=== PATIENT | female | born 1985 | race Caucasian/White ===

== ENCOUNTER 2016-10-28 08:26 | Emergency (ER) | payer MEDICAID ==
[2016-10-28 08:34] VITALS: BP 121/69
[2016-10-28] MEDS ORDERED: Famotidine 20 MG/2 ML SDV IVPUSH ONE (09:27)
[2016-10-28] MEDS ORDERED: Alum Hydrox/Mag Hydrox/Simeth 30 ML, Lidocaine 2% 15 ML PO ONE ×2 (09:27)
--- NOTE | 2016-10-28 09:29 | EDM.PDOC ---
ED HPI GENERAL MEDICAL PROBLEM - General Chief Complaint: Chest Pain Stated Complaint: CHEST PAIN/BURN Time Seen by Provider: 10/28/16 08:34 Source of Information: Reports: Patient History Limitations: Reports: No Limitations - History of Present Illness INITIAL COMMENTS - FREE TEXT/NARRATIVE: 30 y/o F with CP. Started during the night. Woke her from sleep. Burnign and sharp, central chest, radiates towards the back. Mildly worse with inspiration. No SOB. No cough/fever. Better when sitting forward. Also worse with exertion. No nausea/vomiting. No abd pain. Doesn't feel like heartburn to her. No hx similar symptoms previously. No lower extremity pain/swelling. No recent travel. She does have hx ovarian cancer s/p radical hyst, cancer-free now , on supplemental estrogen. No prior DVT/PE. No recent illness. No recent immobilization. Middle Chest Pain Score (Numeric/FACES): 8 - Related Data Allergies Allergy/AdvReac Type Severity Reaction Status Date / Time No Known Allergies Allergy Verified 10/28/16 08:34 Home Meds: Home Meds Estradiol Acetate [Femring] 0.1 mg VAG ASDIRECTED 10/28/16 [History] Ibuprofen 800 mg PO TID PRN #50 tablet 10/28/16 [Rx] Naproxen 500 mg PO BID 10/28/16 [History] Past Medical History HEENT History: Reports: Impaired Vision Other HEENT History: wears corrective lenses Respiratory History: Reports: Other (See Below) Other Respiratory History: pleurisy, small nodules to lungs Gastrointestinal History: Reports: GERD 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: , 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 Musculoskeletal History: Reports: Other (See Below) Other Musculoskeletal History: dysplatic right hip, sciatic issues Neurological History: Reports: Migraines Psychiatric History: Reports: Anxiety Oncologic (Cancer) History: Reports: Ovarian Other Oncologic History: in remission Dermatologic History: Reports: Other (See Below) Other Dermatologic History: sun allergy - Infectious Disease History Infectious Disease History: Reports: Chicken Pox - Past Surgical History HEENT Surgical History: Reports: Tonsillectomy Respiratory Surgical History: Reports: None GI Surgical History: Reports: Appendectomy, Cholecystectomy Female Surgical History: Reports: Hysterectomy, Oophorectomy Other Female Surgeries/Procedures: radical hysterectomy Oncologic Surgical History: Reports: Other (See Below) Other Oncologic Surgeries/Procedures: radical hysterectomy Social & Family History - Tobacco Use Smoking Status *Q: Never Smoker Second Hand Smoke Exposure: No - Caffeine Use Caffeine Use: Reports: Coffee - Recreational Drug Use Recreational Drug Use: No ED ROS GENERAL - Review of Systems Review Of Systems: See Below Constitutional: Denies: Fever Respiratory: Denies: Shortness of Breath, Cough Cardiovascular: Reports: Chest Pain GI/Abdominal: Denies: Abdominal Pain Musculoskeletal: Denies: Neck Pain Skin: Reports: No Symptoms Neurological: Reports: No Symptoms Psychiatric: Reports: No Symptoms (the patient) ED EXAM, GENERAL - Physical Exam Exam: See Below Exam Limited By: No Limitations General Appearance: Alert, WD/WN, No Apparent Distress Eye Exam: Bilateral Eye: PERRL Ears: Normal External Exam Nose: Normal Inspection Throat/Mouth: Normal Inspection, Normal Oropharynx, Normal Voice, No Airway Compromise Head: Atraumatic, Normocephalic Neck: Normal Inspection, Supple, Non-Tender, Full Range of Motion Respiratory/Chest: No Respiratory Distress, Lungs Clear, Normal Breath Sounds, No Accessory Muscle Use, Chest Non-Tender Cardiovascular: Normal Peripheral Pulses, Regular Rate, Rhythm, No Edema, No Murmur, No Rub GI/Abdominal: Soft, Non-Tender, No Distention. No: Rebound Extremities: Normal Inspection. No: Pedal Edema, Leg Pain, Increased Warmth Neurological: Alert, Oriented, Normal Cognition, No Motor/Sensory Deficits Psychiatric: Normal Affect, Normal Mood Skin Exam: Warm, Dry, Intact, Normal Color, No Rash Course - Vital Signs Last Recorded V/S: Last Vital Signs Temp 36.4 C 10/28/16 08:32 Pulse 85 10/28/16 08:32 Resp 19 10/28/16 08:32 BP 121/69 10/28/16 08:32 Pulse Ox 99 10/28/16 08:32 - Orders/Labs/Meds Orders: Active Orders 24 hr Category Date Time Status EKG 12 Lead [EK] Stat Ther 10/28/16 08:47 Ordered EKG 12 Lead [EK] Stat Ther 10/28/16 09:06 Stop Req Labs: Laboratory Tests 10/28/16 10/28/16 10/28/16 Range/Units 08:55 08:55 08:55 WBC 4.28 (3.98-10.04) K/mm3 RBC 5.24 H (3.98-5.22) M/mm3 Hgb 15.2 (11.2-15.7) gm/L Hct 44.1 (34.1-44.9) % MCV 84.2 (79.4-94.8) fl MCH 29.0 (25.6-32.2) pg MCHC 34.5 (32.2-35.5) g/dl RDW Std Deviation 38.9 (36.4-46.3) fL Plt Count 268 (182-369) K/mm3 MPV 10.3 (9.4-12.3) fl Neut % (Auto) 68.5 (34.0-71.1) % Lymph % (Auto) 22.9 (19.3-51.7) % Pratt % (Auto) 7.9 (4.7-12.5) % Eos % (Auto) 0.5 L (0.7-5.8) Baso % (Auto) 0.2 (0.1-1.2) % Neut # (Auto) 2.93 (1.56-6.13) K/mm3 Lymph # (Auto) 0.98 L (1.18-3.74) K/mm3 Pratt # (Auto) 0.34 (0.24-0.36) K/mm3 Eos # (Auto) 0.02 L (0.04-0.36) K/mm3 Baso # (Auto) 0.01 (0.01-0.08) K/mm3 D-Dimer, Quantitative < 0.19 L (0.19-0.59) mg/L Sodium 140 (136-145) mEq/L Potassium 4.3 (3.5-5.1) mEq/L Chloride 104 (98-107) mEq/L Carbon Dioxide 28 (21-32) mEq/L Anion Gap 12.3 (5-15) BUN 4 L (7-18) mg/dL Creatinine 0.7 (0.55-1.02) mg/dL Est Cr Clr Drug Dosing 90.29 mL/min Estimated GFR (MDRD) > 60 (>60) mL/min BUN/Creatinine Ratio 5.7 L (14-18) Glucose 99 (74-106) mg/dL Calcium 9.5 (8.5-10.1) mg/dL Troponin I < 0.017 (0.00-0.056) ng/mL C-Reactive Protein (<1.0) mg/dL 10/28/16 Range/Units 08:55 WBC (3.98-10.04) K/mm3 RBC (3.98-5.22) M/mm3 Hgb (11.2-15.7) gm/L Hct (34.1-44.9) % MCV (79.4-94.8) fl MCH (25.6-32.2) pg MCHC (32.2-35.5) g/dl RDW Std Deviation (36.4-46.3) fL Plt Count (182-369) K/mm3 MPV (9.4-12.3) fl Neut % (Auto) (34.0-71.1) % Lymph % (Auto) (19.3-51.7) % Pratt % (Auto) (4.7-12.5) % Eos % (Auto) (0.7-5.8) Baso % (Auto) (0.1-1.2) % Neut # (Auto) (1.56-6.13) K/mm3 Lymph # (Auto) (1.18-3.74) K/mm3 Pratt # (Auto) (0.24-0.36) K/mm3 Eos # (Auto) (0.04-0.36) K/mm3 Baso # (Auto) (0.01-0.08) K/mm3 D-Dimer, Quantitative (0.19-0.59) mg/L Sodium (136-145) mEq/L Potassium (3.5-5.1) mEq/L Chloride (98-107) mEq/L Carbon Dioxide (21-32) mEq/L Anion Gap (5-15) BUN (7-18) mg/dL Creatinine (0.55-1.02) mg/dL Est Cr Clr Drug Dosing mL/min Estimated GFR (MDRD) (>60) mL/min BUN/Creatinine Ratio (14-18) Glucose (74-106) mg/dL Calcium (8.5-10.1) mg/dL Troponin I (0.00-0.056) ng/mL C-Reactive Protein 0.6 (<1.0) mg/dL Meds: Medications Discontinued Medications Generic Name Dose Route Start Last Admin Trade Name Freq PRN Reason Stop Dose Admin Al Hydroxide/Mg Hydroxide 30 0 ml 10/28/16 09:27 10/28/16 09:36 ml/ Lidocaine HCl 15 ml PO 10/28/16 09:28 45 ml ONETIME ONE Administration Famotidine 20 mg 10/28/16 09:27 10/28/16 09:37 Pepcid IVPUSH 10/28/16 09:28 20 mg ONETIME ONE Administration Ketorolac Tromethamine 30 mg 10/28/16 11:01 10/28/16 11:06 Toradol IVPUSH 10/28/16 11:02 30 mg ONETIME ONE Administration - Re-Assessments/Exams Free Text/Narrative Re-Assessment/Exam: 10/28/16 11:29 Chest x-ray shows no acute abnormality. Labs including d-dimer and troponin are negative. Her story does sound somewhat suggestive of pericarditis. Her EKG shows normal sinus rhythm. She does have some very subtle MA depression but it is minimal and she does not have any ST elevation. Her CRP is negative. So I don 't think that pericarditis is very likely given minimal EKG changes and negative CRP. However, she did not have any relief with GI meds so we will try high-dose NSAIDs in case it is early pericarditis or pleurisy or a musculoskeletal source. Discussed need for follow-up and return precautions. Departure - Departure Time of Disposition: 11:02 Disposition: Home, Self-Care 01 Clinical Impression: Chest pain Qualifiers: Chest pain type: unspecified Qualified Code(s): R07.9 - Chest pain, unspecified Prescriptions: Ibuprofen 800 mg PO TID PRN #50 tablet PRN Reason: Pain Instructions: Nonspecific Chest Pain, [id number] Referrals: PCP,None [Primary Care Provider] - Forms: ED Department Discharge Additional Instructions: 1. Take ibuprofen three times daily as prescribed for a week. If this is early pericarditis (inflammation around the heart sack) this may be helpful. 2. Follow up with your primary doctor next week for further care. 3. Return to the ED if you have worsening chest pain, shortness of breath, swelling in the legs, or any other concerning symptoms. - My Orders Last 24 Hours: My Active Orders 10/28/16 08:47 EKG 12 Lead [EK] Stat 10/28/16 09:06 EKG 12 Lead [EK] Stat - Assessment/Plan Last 24 Hours: My Active Orders 10/28/16 08:47 EKG 12 Lead [EK] Stat 10/28/16 09:06 EKG 12 Lead [EK] Stat
[2016-10-28] MEDS ORDERED: Ketorolac 30 MG/ML SDV IVPUSH ONE (11:01)
--- NOTE | 2016-10-28 11:15 | CR ---
Chest: Portable view of the chest was obtained. Comparison: No previous study. Heart size and mediastinum are normal. Lungs are clear. Bony structures are grossly intact. Impression: 1. Nothing acute is identified on portable chest x-ray. Diagnostic code #1
== END 2016-10-28 11:17 | disposition home or self-care (01) ==
LOC: JD.ED 08:26
DX: R07.9 Chest pain, unspecified (principal)
CPT/HCPCS: 36415; 71010; 80048; 84484; 85025; 85379; 86140; 93005; 96374; 96375; 99285; A9270; J1885; 99284

== ENCOUNTER 2019-12-19 07:35 | Day surgery (SDC) | payer BC ==
[~2019-12-19 07:35] MED LIST: Lactated Ringers 1,000 ML IV SCH; Lidocaine 1% 4 ML ONE; Lidocaine 1%/Sod Bicarbonate in NS 8.4% 1 ML Syringe IDERM PRN; Propofol 200 MG/20 ML SDV ONE; Rocuronium 50 MG/5 ML Vial ONE; Sodium Chloride 0.9% 10 ML Syringe FLUSH PRN
[2019-12-19] MEDS ORDERED: fentaNYL 250 MCG/5 ML SDV ONE (07:36)
[2019-12-19] MEDS ORDERED: Midazolam 1 MG/ML 2 ML SDV ONE (07:36)
[2019-12-19] MEDS ORDERED: Scopolamine 1.5 MG Transdermal Patch TOP ONE (07:59)
--- NOTE | 2019-12-19 08:02 | PCM.PREANE ---
Preanesthetic Assessment - Anesthesia/Transfusion/Family Hx Anesthesia History: Prior Anesthesia Without Reaction Transfusion History: No Prior Transfusion(s) - Review of Systems General: No Symptoms Pulmonary: No Symptoms Cardiovascular: No Symptoms Gastrointestinal: Abdominal Pain (Currently at left side - main complaint 12/19/19), Diarrhea (chronic) Neurological: No Symptoms Other: Reports: Anxiety - Physical Assessment NPO Status Date: 12/18/19 NPO Status Time: 19:00 ASA Class: 2 Mental Status: Alert & Oriented x3 Airway Class: Mallampati = 1 Dentition: Reports: Broken Tooth/Teeth (upper left molar), Missing Tooth/Teeth (Upper right ) Thyro-Mental Finger Breadths: 3 Mouth Opening Finger Breadths: 3 ROM/Head Extension: Full Lungs: Clear to Auscultation, Normal Respiratory Effort Cardiovascular: Regular Rate, Regular Rhythm - Allergies Allergies/Adverse Reactions: Allergies Allergy/AdvReac Type Severity Reaction Status Date / Time No Known Allergies Allergy Verified 08/30/18 06:30 - Acknowledgements Anesthesia Type Planned: General Anesthesia Pt an Appropriate Candidate for the Planned Anesthesia: Yes Alternatives and Risks of Anesthesia Discussed w Pt/Guardian: Yes Pt/Guardian Understands and Agrees with Anesthesia Plan: Yes PreAnesthesia Questionnaire HEENT History: Reports: Impaired Vision Other HEENT History: wears corrective lenses Respiratory History: Reports: Other (See Below) Other Respiratory History: pleurisy, small nodules to lungs Gastrointestinal History: Reports: Chronic Diarrhea, GERD (pt states has gotten better) Genitourinary History: Reports: None 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: , 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 LMP (Approximate): Other (See Below) Other OB/BYN History: s/p Hysterectomy +BSO Musculoskeletal History: Reports: Other (See Below) Other Musculoskeletal History: dysplatic right hip, sciatic issues Neurological History: Reports: Migraines (no headache today) Psychiatric History: Reports: Anxiety Endocrine/Metabolic History: Reports: Obesity/BMI 30+ (BMI = 41.9) Hematologic History: Reports: None Oncologic (Cancer) History: Reports: Ovarian Other Oncologic History: in remission Dermatologic History: Reports: Other (See Below) Other Dermatologic History: sun allergy - Infectious Disease History Infectious Disease History: Reports: Chicken Pox - Past Surgical History Head Surgeries/Procedures: Reports: None HEENT Surgical History: Reports: Tonsillectomy Cardiovascular Surgical History: Reports: None Respiratory Surgical History: Reports: None GI Surgical History: Reports: Appendectomy, Cholecystectomy Female Surgical History: Reports: Hysterectomy, Oophorectomy Other Female Surgeries/Procedures: radical hysterectomy Endocrine Surgical History: Reports: None Neurological Surgical History: Reports: None Musculoskeletal Surgical History: Reports: Arthroscopic Procedure (Rt hip x2) Oncologic Surgical History: Reports: Other (See Below) Other Oncologic Surgeries/Procedures: radical hysterectomy - HOME MEDS Home Medications: Home Meds Venlafaxine HCl [Venlafaxine ER] 75 mg PO DAILY 08/29/18 [History] estradioL [Estrace] 2 mg PO DAILY 08/29/18 [History] Acetaminophen/HYDROcodone [[place] 325-5 MG] 1 - 2 tab PO Q6H PRN #30 tablet 08/30/18 [Rx] Aspirin 325 mg PO BID #84 tab 08/30/18 [Rx] Cyclobenzaprine [Flexeril] 10 mg PO Q12H PRN #30 tab 08/30/18 [Rx] - CURRENT (IN HOUSE) MEDS Current Meds: Current Medications Discontinued Medications Fentanyl (Sublimaze) Confirm Administered Dose 250 mcg .ROUTE .STK-MED ONE Stop: 12/19/19 07:37 Lidocaine HCl (Xylocaine-Mpf 1%) Confirm Administered Dose 4 mls @ as directed .ROUTE .STK-MED ONE Stop: 12/19/19 07:36 Midazolam HCl (Versed 1 Mg/Ml) Confirm Administered Dose 2 mg .ROUTE .STK-MED ONE Stop: 12/19/19 07:37 Propofol (Diprivan 20 Ml) Confirm Administered Dose 200 mg .ROUTE .STK-MED ONE Stop: 12/19/19 07:36 Rocuronium [place] (Zemuron) Confirm Administered Dose 50 mg .ROUTE .STK-MED ONE Stop: 12/19/19 07:36
[2019-12-19] MEDS ORDERED: Bupivacaine 0.5%/EPINEPHrine 1:200,000 50 ML MDV ONE (08:32)
[2019-12-19] MEDS ORDERED: ceFAZolin 1 GM Vial ONE (09:06)
[2019-12-19] MEDS ORDERED: HYDROmorphone 0.5 MG/0.5 ML Syringe ONE ×2 (09:07→09:16)
[2019-12-19] MEDS ORDERED: Lactated Ringers 1,000 ML ONE (09:22)
[2019-12-19] MEDS ORDERED: Dexamethasone 4 MG/ML 5 ML MDV ONE (09:24)
[2019-12-19] MEDS ORDERED: fentaNYL 100 MCG/2 ML SDV ONE (09:33)
[2019-12-19] MEDS ORDERED: HYDROmorphone 0.5 MG/0.5 ML Syringe IVPUSH ONE (09:35)
[2019-12-19] MEDS ORDERED: Ondansetron 4 MG/2 ML SDV IVPUSH PRN (09:35)
[2019-12-19] MEDS ORDERED: Ondansetron 4 MG/2 ML SDV ONE (09:41)
[2019-12-19] MEDS ORDERED: Ketorolac 30 MG/ML SDV ONE (09:42)
--- NOTE | 2019-12-19 10:14 | PCM.POSTAN ---
POST ANESTHESIA ASSESSMENT - MENTAL STATUS Mental Status: Alert, Oriented - VITAL SIGNS Vital Signs: Last Vital Signs Temp 35.9 C L 12/19/19 07:40 Pulse 96 12/19/19 07:40 Resp 16 12/19/19 07:40 BP 138/90 12/19/19 07:40 Pulse Ox 99 12/19/19 07:40 - RESPIRATORY Respiratory Status: Respiratory Rate WNL, Airway Patent, O2 Saturation Stable - CARDIOVASCULAR CV Status: Pulse Rate WNL, Blood Pressure Stable - GASTROINTESTINAL GI Status: No Symptoms - PAIN Pain Score: 2 - POST OP HYDRATION Hydration Status: Adequate & Stable
--- NOTE | 2019-12-19 10:18 | PCM.PRNOTE ---
- Free Text/Narrative Note: Operative Report Operation: diagnostic laparoscopy Date: 12/19/2019 Attending Surgeon: Forrest Triana MD Indication for Surgery: history of ovarian cancer, now with abdominal pain and free fluid noted on CT scan Preoperative antibiotics: 3 g Ancef IV VTE prophylaxis: SCDs Estimated Blood Loss: 5 cc Findings: scant straw colored peritoneal fluid in pelvis collected and sent for cytology. No abnormal findings otherwise. Detailed Report: The patient underwent general endotracheal anesthesia after being placed supine on the operating table. Time out was performed, confirming the patients identity and the operation to be performed. The abdomen was prepped and draped in sterile fashion. A Veress needle was inserted into the abdominal cavity below the left costal margin along the mid-clavicular line. The abdomen was insufflated with CO2 to 15 mm Hg. Gas was aspirated superior to the umbilicus with a syringe in order to ensure safe placement of a 5 mm bladed laparoscopic port. The 5mm 30 degree laparoscope was then inserted and viscera inspected. Two additional 5 mm ports were placed along the right side superior and inferior to the central umbilical port. The liver was inspected and appeared normal. The small bowel was then run from the ileocecal junction to the Ligament of Trietz; no abnormalities were noted. The left lobe of the liver was then retracted anteriorly and the stomach and spleen looked normal. The colon was inspected from proximal to distal and no abnormalities noted. In the pelvis, there were some adhesions of the sigmoid colon to the left pelvic side wall. There was a trace amount of clear straw-colored fluid in the pelvis. This was suctioned and a sample was collected for cytology. The peritoneal surface looked normal. The cecum was mobilized some in order to clearly visualize the appendix, which was not seen at the convergence of the taenia. Pneumoperitoneum was then released. All skin incisions were then closed with placement of subcuticular vicryl suture and dressed with dermabond. A total of 10 cc 0.5% marcaine with epinephrine was used for local anesthesia at the incision sites. The patient tolerated the operation well, was extubated in the operating room and transferred to the PACU for routine post-anesthesia care.
[2019-12-19] MEDS: fentaNYL 100 MCG/2 ML SDV IVPUSH PRN ×2 (10:21→10:39)
--- NOTE | 2019-12-19 10:38 | PCM48HPAN ---
Post Anesthesia Note - EVALUATION WITHIN 48HRS OF ANESTHETIC Vital Signs in Normal Range: Yes Patient Participated in Evaluation: Yes Respiratory Function Stable: Yes Airway Patent: Yes Cardiovascular Function Stable: Yes Hydration Status Stable: Yes Pain Control Satisfactory: Yes Nausea and Vomiting Control Satisfactory: Yes Mental Status Recovered: Yes Vital Signs: Last Vital Signs Temp 36.3 C 12/19/19 10:07 Pulse 96 12/19/19 07:40 Resp 14 12/19/19 10:30 BP 134/78 12/19/19 10:30 Pulse Ox 98 12/19/19 10:30
[2019-12-19] MEDS ORDERED: oxyCODONE 5 MG Tab PO PRN (10:57)
[2019-12-19 12:15] VITALS: BP 128/80; PULSE 84
== END 2019-12-19 12:04 | disposition home or self-care (01) ==
LOC: JD.SDS 07:35
PROVIDERS: ATTEND Surgery
DX: R10.12 Left upper quadrant pain (principal); F41.9 Anxiety disorder, unspecified; E66.9 Obesity, unspecified; Z79.899 Other long term (current) drug therapy; Z98.890 Other specified postprocedural states; Z68.41 Body mass index [BMI] 40.0-44.9, adult
CPT/HCPCS: 49320; A9270; J0690; J1100; J1170; J1885; J2001; J2250; J2405; J2704; J3010; J3490; J7120; 00840

== ENCOUNTER 2019-12-31 07:31 | Day surgery (SDC) | payer BC ==
[~2019-12-31 07:31] MED LIST changes: -Lidocaine 1% 4 ML ONE; -Propofol 200 MG/20 ML SDV ONE; -Rocuronium 50 MG/5 ML Vial ONE; +diphenhydrAMINE 50 MG/ML SDV IVPUSH STA
[2019-12-31] MEDS ORDERED: Lidocaine 1% 4 ML ONE (08:04)
[2019-12-31] MEDS ORDERED: Propofol 200 MG/20 ML SDV ONE ×4 (08:04→08:35)
[2019-12-31] MEDS ORDERED: fentaNYL 100 MCG/2 ML SDV ONE (08:05)
--- NOTE | 2019-12-31 08:31 | PCM.PREANE ---
Preanesthetic Assessment - Procedure Proposed Procedure: EGD and Colonoscopy - Anesthesia/Transfusion/Family Hx Anesthesia History: Prior Anesthesia Without Reaction Transfusion History: No Prior Transfusion(s) - Review of Systems General: No Symptoms Pulmonary: No Symptoms Cardiovascular: No Symptoms Gastrointestinal: No Symptoms Neurological: No Symptoms Other: Reports: None - Physical Assessment NPO Status Date: 12/30/19 NPO Status Time: 20:30 Vital Signs: Last Vital Signs Temp 97.2 F 12/31/19 07:40 Pulse 82 12/31/19 07:40 Resp 16 12/31/19 07:40 BP 137/84 12/31/19 07:40 Pulse Ox 98 12/31/19 07:40 Height: 1.55 m Weight: 97.976 kg ASA Class: 2 Mental Status: Alert & Oriented x3 Airway Class: Mallampati = 1 Dentition: Reports: Normal Dentition Thyro-Mental Finger Breadths: 3 Mouth Opening Finger Breadths: 3 ROM/Head Extension: Full Lungs: Clear to Auscultation, Normal Respiratory Effort Cardiovascular: Regular Rate, Regular Rhythm - Allergies Allergies/Adverse Reactions: Allergies Allergy/AdvReac Type Severity Reaction Status Date / Time No Known Allergies Allergy Verified 12/19/19 08:37 - Acknowledgements Anesthesia Type Planned: MAC Pt an Appropriate Candidate for the Planned Anesthesia: Yes Alternatives and Risks of Anesthesia Discussed w Pt/Guardian: Yes Pt/Guardian Understands and Agrees with Anesthesia Plan: Yes PreAnesthesia Questionnaire HEENT History: Reports: Impaired Vision Other HEENT History: wears corrective lenses Cardiovascular History: Reports: None Respiratory History: Reports: Other (See Below) Other Respiratory History: pleurisy, small nodules to lungs Gastrointestinal History: Reports: Chronic Diarrhea, GERD (pt states has gotten better) Genitourinary History: Reports: None 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: , 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 Other OB/BYN History: s/p Hysterectomy +BSO Musculoskeletal History: Reports: Other (See Below) Other Musculoskeletal History: dysplatic right hip, sciatic issues Neurological History: Reports: Migraines (no headache today) Psychiatric History: Reports: Anxiety Endocrine/Metabolic History: Reports: Obesity/BMI 30+ (morbid obesity) Hematologic History: Reports: None Immunologic History: Reports: None Oncologic (Cancer) History: Reports: Ovarian Other Oncologic History: in remission Dermatologic History: Reports: Other (See Below) Other Dermatologic History: sun allergy - Infectious Disease History Infectious Disease History: Reports: Chicken Pox - Past Surgical History Head Surgeries/Procedures: Reports: None HEENT Surgical History: Reports: Tonsillectomy Cardiovascular Surgical History: Reports: None Respiratory Surgical History: Reports: None GI Surgical History: Reports: Appendectomy, Cholecystectomy Female Surgical History: Reports: Hysterectomy, Oophorectomy Other Female Surgeries/Procedures: radical hysterectomy Endocrine Surgical History: Reports: None Neurological Surgical History: Reports: None Musculoskeletal Surgical History: Reports: Arthroscopic Procedure (Rt hip x2) Oncologic Surgical History: Reports: Other (See Below) Other Oncologic Surgeries/Procedures: radical hysterectomy - HOME MEDS Home Medications: Home Meds Venlafaxine HCl [Venlafaxine ER] 75 mg PO DAILY 08/29/18 [History] estradioL [Estrace] 2 mg PO DAILY 08/29/18 [History] - CURRENT (IN HOUSE) MEDS Current Meds: Current Medications Lactated Ringer's (Ringers, Lactated) 1,000 mls @ 125 mls/hr IV ASDIRECTED COREEN Last Admin: 12/31/19 07:55 Dose: 125 mls/hr Documented by: Lidocaine/Sodium Bicarbonate (Buffered Lidocaine 1% In Ns 8.4%) 0.25 ml IDERM ONETIME PRN PRN Reason: Prior to IV Start Last Admin: 12/31/19 07:54 Dose: 0.25 ml Documented by: Sodium Chloride (Saline Flush) 10 ml FLUSH ASDIRECTED PRN PRN Reason: Keep Vein Open Discontinued Medications Diphenhydramine HCl (Benadryl) 25 mg IVPUSH STAT STA Stop: 12/31/19 07:12 Fentanyl (Sublimaze) Confirm Administered Dose 100 mcg .ROUTE .STK-MED ONE Stop: 12/31/19 08:06 Lidocaine HCl (Xylocaine-Mpf 1%) Confirm Administered Dose 4 mls @ as directed .ROUTE .STK-MED ONE Stop: 12/31/19 08:05 Propofol (Diprivan 20 Ml) Confirm Administered Dose 200 mg .ROUTE .STK-MED ONE Stop: 12/31/19 08:05 Propofol (Diprivan 20 Ml) Confirm Administered Dose 200 mg .ROUTE .STK-MED ONE Stop: 12/31/19 08:13 Propofol (Diprivan 20 Ml) Confirm Administered Dose 200 mg .ROUTE .STK-MED ONE Stop: 12/31/19 08:16
--- NOTE | 2019-12-31 08:55 | PCM48HPAN ---
Post Anesthesia Note - EVALUATION WITHIN 48HRS OF ANESTHETIC Vital Signs in Normal Range: Yes Patient Participated in Evaluation: Yes Respiratory Function Stable: Yes Airway Patent: Yes Cardiovascular Function Stable: Yes Hydration Status Stable: Yes Pain Control Satisfactory: Yes Nausea and Vomiting Control Satisfactory: Yes Mental Status Recovered: Yes Vital Signs: Last Vital Signs Temp 96.9 F 12/31/19 08:45 Pulse 84 12/31/19 08:45 Resp 14 12/31/19 08:45 BP 133/88 12/31/19 08:45 Pulse Ox 99 12/31/19 08:45
--- NOTE | 2019-12-31 09:02 | PCM.PRNOTE ---
- Free Text/Narrative Note: Date: 12/31/2019 Procedure: diagnostic upper and lower endoscopy Indication: persistent right sided abdominal pain with recent negative diagnostic laparoscopy Surgeon: Forrest Triana MD Findings: no abnormal findings. Terminal ileum intubated. Detailed Report: The patient was taken to the endoscopy suite and placed in left lateral decubitus position. Time out was performed and monitored anesthesia care initiated. A bite block was placed. The endoscope was inserted into the mouth and advanced to the duodenum with ease. The ampulla was visualized. No mucosal abnormalities were noted. A sample biopsy from the duodenal bulb was obtained with forceps. The stomach also appeared normal with no gross evidence of gastritis, ulceration or hiatal hernia. A sample biopsy from the antrum was obtained with forceps. The Z line appeared normal. A sample of distal esophageal mucosa was obtained with forceps. Air was suctioned from the stomach and the scope withdrawn; the remainder of the esophagus appeared normal. Next, colonoscopy was performed. The anus appeared normal. Palpable hypertrophied anal papillae were noted on digital exam. The scope was then inserted into the anus and advanced to the cecum. The terminal ileum was intubated. Mucosa appeared normal, and a sample biopsy was obtained with forceps. The colon appeared grossly normal and no polyps, diverticula, or other pathology noted. Air was suctioned prior to withdrawal of the scope. The patient tolerated the procedure well.
[2019-12-31 10:03] VITALS: BP 126/84; PULSE 65
== END 2019-12-31 10:00 | disposition home or self-care (01) ==
LOC: JD.SDS 07:31
PROVIDERS: ATTEND Surgery
DX: K52.9 Noninfective gastroenteritis and colitis, unspecified (principal); R10.12 Left upper quadrant pain; F41.9 Anxiety disorder, unspecified; E66.01 Morbid (severe) obesity due to excess calories; G43.909 Migraine, unspecified, not intractable, without status migrainosus; Z98.890 Other specified postprocedural states; Z79.899 Other long term (current) drug therapy; Z68.41 Body mass index [BMI] 40.0-44.9, adult; Z90.49 Acquired absence of other specified parts of digestive tract
CPT/HCPCS: 43239; 45380; J2001; J2704; J3010; J7120; 00813

== ENCOUNTER 2020-06-25 07:21 | Day surgery (SDC) | payer BC ==
[~2020-06-25 07:21] MED LIST changes: +Lidocaine 1% 4 ML ONE; +Midazolam 1 MG/ML 2 ML SDV ONE; +Propofol 200 MG/20 ML SDV ONE; +ceFAZolin 1 GM Vial ONE; -diphenhydrAMINE 50 MG/ML SDV IVPUSH STA; +fentaNYL 250 MCG/5 ML SDV ONE
--- NOTE | 2020-06-25 07:28 | PCM.PREANE ---
Preanesthetic Assessment - Anesthesia/Transfusion/Family Hx Anesthesia History: Prior Anesthesia Reaction (EDITH) Family History of Anesthesia Reaction: No Transfusion History: No Prior Transfusion(s) - Review of Systems General: No Symptoms Pulmonary: No Symptoms Cardiovascular: No Symptoms Gastrointestinal: No Symptoms Neurological: No Symptoms Other: Reports: None - Physical Assessment NPO Status Date: 06/24/20 NPO Status Time: 17:00 ASA Class: 3 Mental Status: Alert & Oriented x3 Airway Class: Mallampati = 1 Dentition: Reports: Normal Dentition Thyro-Mental Finger Breadths: 3 Mouth Opening Finger Breadths: 3 ROM/Head Extension: Full Lungs: Clear to Auscultation, Normal Respiratory Effort Cardiovascular: Regular Rate, Regular Rhythm - Allergies Allergies/Adverse Reactions: Allergies Allergy/AdvReac Type Severity Reaction Status Date / Time No Known Allergies Allergy Verified 06/24/20 14:02 - Acknowledgements Anesthesia Type Planned: Spinal Pt an Appropriate Candidate for the Planned Anesthesia: Yes Alternatives and Risks of Anesthesia Discussed w Pt/Guardian: Yes Pt/Guardian Understands and Agrees with Anesthesia Plan: Yes PreAnesthesia Questionnaire HEENT History: Reports: Impaired Vision Other HEENT History: wears corrective lenses Cardiovascular History: Reports: None, Hypertension Respiratory History: Reports: Other (See Below) Gastrointestinal History: Reports: Chronic Diarrhea, GERD, Irritable Bowel Syndrome Genitourinary History: [employer] History: Reports: , Spontaneous Other OB/BYN History: s/p Hysterectomy +BSO Musculoskeletal History: Reports: Arthritis, Other (See Below) Other Musculoskeletal History: dysplatic right hip, sciatic issues Neurological History: Reports: Migraines Psychiatric History: Reports: Anxiety Endocrine/Metabolic History: Reports: Obesity/BMI 30+ Hematologic History: Reports: Other (See Below) Other Hematologic History: hypokalemia Immunologic History: Oncologic (Cancer) History: Reports: Ovarian Dermatologic History: - Infectious Disease History Infectious Disease History: Reports: Chicken Pox - Past Surgical History Head Surgeries/Procedures: HEENT Surgical History: Reports: Tonsillectomy Cardiovascular Surgical History: Reports: None Respiratory Surgical History: GI Surgical History: Reports: Appendectomy, Cholecystectomy Female Surgical History: Reports: Hysterectomy, Oophorectomy, Tubal Ligation Endocrine Surgical History: Neurological Surgical History: Musculoskeletal Surgical History: Reports: Arthroscopic Procedure Oncologic Surgical History: - SUBSTANCE USE Tobacco Use Status *Q: Never Tobacco User Recreational Drug Use History: No - HOME MEDS Home Medications: Home Meds Venlafaxine HCl [Venlafaxine ER] 75 mg PO DAILY 08/29/18 [History] Calcium Carb, Citrate/Vit D3 [Calcium + D3 ER Tablet] 1 tab PO DAILY 06/24/20 [History] Cholecalciferol (Vitamin D3) [Vitamin D3] 1 tab PO DAILY 06/24/20 [History] Losartan [Cozaar] 50 mg PO DAILY 06/24/20 [History] Acetaminophen/HYDROcodone [[place] 325-5 MG] 1 - 2 tab PO Q4H PRN #40 tablet 06/25/20 [Rx] Aspirin [Aspirin EC] 325 mg PO BID #70 tab 06/25/20 [Rx] Cyclobenzaprine [Flexeril] 10 mg PO BID PRN #20 tab 06/25/20 [Rx] - CURRENT (IN HOUSE) MEDS Current Meds: Current Medications Morphine Sulfate 8 mg/Epinephrine HCl 0.3 mg/Cefuroxime Sodium 750 mg/Ketorolac Tromethamine 30 mg/Sodium Chloride 7.9 ml 0 mg .XX ASDIRECTED PRN PRN Reason: Pain Stop: 06/25/20 12:00 Lactated Ringer's (Ringers, Lactated) 1,000 mls @ 125 mls/hr IV ASDIRECTED COREEN Stop: 06/25/20 23:00 Lidocaine/Sodium Bicarbonate (Lidocaine 1%/Sod Bicarbonate In Ns 8.4% 1 Ml Syringe) 0.25 ml IDERM ONETIME PRN PRN Reason: Prior to IV Start Stop: 06/25/20 18:00 Sodium Chloride (Sodium Chloride 0.9% 10 Ml Syringe) 10 ml FLUSH ASDIRECTED PRN PRN Reason: Keep Vein Open Stop: 06/25/20 18:00 Discontinued Medications Cefazolin Sodium (Cefazolin 1 Gm Vial) Confirm Administered Dose 2 gm .ROUTE .STK-MED ONE Stop: 06/25/20 07:05 Fentanyl (Fentanyl 250 Mcg/5 Ml Sdv) Confirm Administered Dose 250 mcg .ROUTE .STK-MED ONE Stop: 06/25/20 07:04 Lidocaine HCl (Xylocaine-Mpf 1%) Confirm Administered Dose 4 mls @ as directed .ROUTE .STK-MED ONE Stop: 06/25/20 07:03 Midazolam HCl (Midazolam 1 Mg/Ml 2 Ml Sdv) Confirm Administered Dose 2 mg .ROUTE .STK-MED ONE Stop: 06/25/20 07:04 Propofol (Propofol 200 Mg/20 Ml Sdv) Confirm Administered Dose 200 mg .ROUTE .STK-MED ONE Stop: 06/25/20 07:03
[2020-06-25] MEDS ORDERED: Scopolamine 1.5 MG Transdermal Patch TRDERM PRN (07:37)
[2020-06-25] MEDS ORDERED: Midazolam 1 MG/ML 2 ML SDV ONE (08:15)
[2020-06-25] MEDS ORDERED: Propofol 200 MG/20 ML SDV ONE ×5 (08:47→10:59)
[2020-06-25] MEDS ORDERED: Lactated Ringers 1,000 ML ONE (08:58)
[2020-06-25] MEDS ORDERED: Ondansetron 4 MG/2 ML SDV IVPUSH PRN (09:18)
[2020-06-25] MEDS: Morphine 8 MG, EPINEPHrine 0.3 MG, Cefuroxime 750 MG, Ketorolac 30 MG, Sodium Chloride ... PRN ×10 (09:48→10:34)
[2020-06-25] MEDS: Vancomycin 1 GM SDV ONE ×2 (09:49→10:34)
[2020-06-25] MEDS ORDERED: Ondansetron 4 MG/2 ML SDV ONE (10:11)
[2020-06-25] MEDS ORDERED: Ketorolac 30 MG/ML SDV ONE (10:11)
--- NOTE | 2020-06-25 11:25 | PCM.POSTAN ---
POST ANESTHESIA ASSESSMENT - MENTAL STATUS Mental Status: Alert, Oriented - VITAL SIGNS Vital Signs: Last Vital Signs Temp 36.6 C 06/25/20 07:30 Pulse 80 06/25/20 07:30 Resp 16 06/25/20 07:30 BP 145/96 H 06/25/20 07:30 Pulse Ox 98 06/25/20 07:30 - RESPIRATORY Respiratory Status: Respiratory Rate WNL, Airway Patent, O2 Saturation Stable - CARDIOVASCULAR CV Status: Pulse Rate WNL, Blood Pressure Stable - GASTROINTESTINAL GI Status: No Symptoms - PAIN Pain Score: 0 - POST OP HYDRATION Hydration Status: Adequate & Stable
[2020-06-25] MEDS: fentaNYL 100 MCG/2 ML SDV IVPUSH PRN ×2 (11:29→12:11)
[2020-06-25] MEDS ORDERED: Haloperidol Lactate 5 MG/ML SDV IVPUSH ONE (11:52)
--- NOTE | 2020-06-25 12:01 | CR ---
Pelvis and right hip: AP view of the pelvis was obtained as well as crosstable lateral views of the right hip. Comparison: Prior CT hip for surgical planning of 06/19/20 and fluoroscopic plain film study of 08/30/18. Right hip prosthesis is seen. Components are aligned. Underlying bony structures appear intact. Soft tissue air is noted from the surgical procedure. Impression: 1. Satisfactory postop radiographic appearance of recently placed right hip prosthesis. Diagnostic code #2
--- NOTE | 2020-06-25 12:26 | PCM48HPAN ---
Post Anesthesia Note - EVALUATION WITHIN 48HRS OF ANESTHETIC Vital Signs in Normal Range: Yes Patient Participated in Evaluation: Yes Respiratory Function Stable: Yes Airway Patent: Yes Cardiovascular Function Stable: Yes Hydration Status Stable: Yes Pain Control Satisfactory: Yes Nausea and Vomiting Control Satisfactory: Yes Mental Status Recovered: Yes Vital Signs: Last Vital Signs Temp 36.6 C 06/25/20 12:05 Pulse 68 06/25/20 12:05 Resp 10 L 06/25/20 12:05 BP 126/80 06/25/20 12:05 Pulse Ox 99 06/25/20 12:05
[2020-06-25] MEDS ORDERED: Acetaminophen/HYDROcodone 325-5 MG Tab PO PRN (13:00)
[2020-06-25] MEDS ORDERED: Cyclobenzaprine 10 MG Tab PO ONE (13:00)
[2020-06-25] MEDS ORDERED: fentaNYL 100 MCG/2 ML SDV IVPUSH STA (13:02)
[2020-06-25] MEDS ORDERED: fentaNYL 100 MCG/2 ML SDV ONE (13:13)
[2020-06-25 15:14] VITALS: BP 110/75; PULSE 76
--- NOTE | 2020-07-07 07:57 | PCM.OPNOTE ---
- General Post-Op/Procedure Note Date of Surgery/Procedure: 06/25/20 Operative Procedure(s): right total hip arthroplasty with [employer] Pre Op Diagnosis: right hip osteoarthrosis Post-Op Diagnosis: Same Anesthesia Technique: Local, MAC, Spinal Primary Surgeon: Moe Nowak Anesthesia Provider: Carla Varela Machine Chocolate Molder: Argelia Hayes Machine Chocolate Molder: Leidy Gutierrez EBL in mLs: 200 Complications: None Condition: Good Free Text/Narrative:: 52 4 28-4 MDM
--- NOTE | 2020-07-07 09:32 | OR ---
DATE OF OPERATION: 06/25/2020 SURGEON: Moe Nowak MD OPERATION PERFORMED: Right total hip arthroplasty with [place] [employer]. PREOPERATIVE DIAGNOSIS: Right hip osteoarthrosis. POSTOPERATIVE DIAGNOSIS: Right hip osteoarthrosis. ANESTHESIA: Local MAC with spinal. ANESTHESIA PROVIDER: Carla Varela CRNA ASSISTANTS: Argelia Hayes PA-C and Leidy Gutierrez LPN. ESTIMATED BLOOD LOSS: 200 mL. COMPLICATIONS: None. CONDITION: Stable. IMPLANTS: 1. [place] size 52 mm solid Tritanium II acetabular cup. 2. [place] size 4 Accolade II stem. 3. [place] size 28 -4/42 MDM components. DESCRIPTION OF PROCEDURE: The patient was identified in the preoperative holding area. Proper site was marked and identified by the surgeon. The patient was taken back to the operative theater where after adequate anesthesia, the patient was placed in the left lateral decubitus position. Axillary roll was placed. The patient's gluteal fold was parallel to the floor. Pegs were then placed and well padded. Right hip was then sterilely prepped and draped in the usual sterile fashion. OR time-out was performed. The patient received 2 g of IV Ancef. At this time, three 4-0 Schanz pins were placed in the iliac crest 3 fingerbreadths posterior to the ASIS and to make sure the [place] [employer] robotic array was down onto bone. At this time, standard posterior incision was made. This was taken down to the IT band and gluteal fascia, which was incised along the incisional length. Charnley retractor was then placed. Checkpoint was placed in the greater tuberosity. At this time, takedown of the short external rotators was done from the level of the piriformis down to the lesser trochanter. Hip was then dislocated. Neck cut was completed and found to be adequate. Anterior and posterior acetabular retractors were then placed. Circumferential removal of labrum was done as well as the pulvinar. At this time, checkpoint was placed on the rim of the acetabulum. Fifteen points were obtained intra-articularly as well as extra-articularly on the acetabular rim. The [place] [employer] robotic plan was for a 52 mm cup, so 52 mm reamer was then brought in, and ream was created at 45 degrees of abduction and 20 degrees of anteversion. There was found to be a good concentric ream. The cup was then placed on the [employer] robotic arm. It was then impacted into place in 45 degrees of abduction, 20 degrees of anteversion. MDM liner was then impacted into place and was found to have a solid fixation. Attention was turned to the femur. Box chisel was used out laterally. Starter awl was placed down the canal. Starting with 0 broach, I was able to broach up to a size 4, which was found to be rotationally and vertically stable. A 28 -4 MDM trial components were then placed. The patient had full scientology of leg lengths as well as stability throughout range of motion. Bone hook was used to dislocate the trial implants. The size 4 Accolade II stem was then impacted into place, and the 28/42, -4 MDM components were then impacted into place. Hip was then relocated. A #5 Ethibond suture was used for closure of the short external rotators and capsule, and then a periarticular injection was completed. 1 L of pulse lavage irrigation with Ancef was irrigated through the hip and then 400 mL of IrriSept irrigation. A #2 barbed suture was used then for closure of the IT band and gluteal fascia. A 2-0 Vicryl was used subcutaneously. Prineo was used for closure of the skin. All [employer] robotic arrays and checkpoints were removed before closure. The patient had a sterile soft dressing applied and was then sent to the PACU in stable condition. MMODAL /[id number]
== END 2020-06-25 14:47 | disposition home or self-care (01) ==
LOC: JD.SDS 07:21
PROVIDERS: ATTEND Orthopaedic Surgery
DX: M16.11 Unilateral primary osteoarthritis, right hip (principal); I10 Essential (primary) hypertension; E66.9 Obesity, unspecified; Z98.890 Other specified postprocedural states; Z68.41 Body mass index [BMI] 40.0-44.9, adult
CPT/HCPCS: 27130; 36415; 73501; 81025; 86850; 86900; 86901; 97116; 97161; 97165; A9270; C1713; C1776; J0171; J0690; J0697; J1630; J1885; J2250; J2270; J2370; J2405; J2704; J3010; J3370; J7120; 01214

== ENCOUNTER 2022-06-01 16:28 | Emergency (ER) | payer BC ==
[2022-06-01] MEDS ORDERED: Sodium Chloride 0.9% 10 ML Syringe FLUSH PRN (17:13)
[2022-06-01] MEDS ORDERED: LORazepam 2 MG/ML SDV IVPUSH ONE (17:22)
[2022-06-01 17:50] LABS: ESTIMATED GFR 99 mL/min (>60)
[2022-06-01] MEDS ORDERED: Magnesium Oxide 400 MG Tab PO ONE (18:45)
[2022-06-01] MEDS ORDERED: Lactated Ringers 1,000 ML IV ONE (19:05)
[2022-06-01 20:20] VITALS: BP 141/91; PULSE 109
== END 2022-06-01 22:36 | disposition home or self-care (01) ==
LOC: JD.ED 16:28
DX: R00.2 Palpitations (principal); R00.0 Tachycardia, unspecified; R20.0 Anesthesia of skin; R20.2 Paresthesia of skin; E66.9 Obesity, unspecified; Z68.42 Body mass index [BMI] 45.0-49.9, adult; Z79.899 Other long term (current) drug therapy
CPT/HCPCS: 36415; 80053; 83735; 84443; 84484; 85025; 85379; 93005; 96361; 96374; 99285; A9270; J2060; J3490; J7120; 93010; 99283